=== PATIENT | female | born 1935 | race Caucasian/White ===

== ENCOUNTER → 2021-07-24 | Outpatient (CLI) | payer MEDICARE, OTHER ==
[~2021-07-24] MED LIST: AC160U10 PO; AC325T PO; APIX5TAB2 PO; ASPI-587 PO; ASPI325T32 PO; Albuterol Sulfate INH; CALC-185 PO; CELE200C PO; DCS100C PO; DIGO125T PO; DILT120C82 PO; DNPZ5T PO; DOCU50LI PO; ENLP5T PO; FURO20TA PO; FURO20TA4 PO; GUAI100S PO; HYDR25SU28 RC; MEMA21CA PO; MENT71OI TOP; METO25TA2 PO; MIRT15TA6 PO; Mirtazapine PO; NFPRILOC40 PO; OXYC5CAP4 PO; POLY17PO23 PO; POTA20TA15 PO; RISP0.5T2 PO; RT-ALBUINH IH; SOTA80TA22 PO; SULF-222 PO; [UNRECOGNIZED DRUG - CODE] PO; [UNRECOGNIZED DRUG - CODE] PO; [UNRECOGNIZED DRUG - OTHER] PO
[2021-07-24 14:38] LABS: BILIRUBIN,URINE NEGATIVE (NEGATIVE); CLARITY,URINE CLOUDY; COLOR,URINE YELLOW; GLUCOSE, URINE (UA) NEGATIVE (NEGATIVE); KETONES,URINE NEGATIVE (NEGATIVE); LEUKOCYTE ESTERASE ,URINE 3+ (NEGATIVE); NITRITE,URINE POSITIVE (NEGATIVE); PROTEIN,URINE TRACE (NEGATIVE)
[2021-07-24 14:44] LABS: AMORPHOUS SEDIMENT,UR MOD AMOR PHOSPHATE /LPF; BACTERIA,URINE LARGE /HPF; RBC,URINE 50-100 /HPF; WBC,URINE >100 /HPF
== END ==
LOC: LAB FS 14:27
PROVIDERS: ATTEND Emergency Medicine
DX: R31.9 Hematuria, unspecified (principal); R82.998 Other abnormal findings in urine
CPT/HCPCS: 81000; 87088